=== PATIENT | female | born 1980 | race African-American/Black ===

== ENCOUNTER → 2017-07-12 | Outpatient (CLI) | payer OTHER ==
[~2017-07-12] VITALS: Ht 152.4 cm; Wt 99.8 kg
[~2017-07-12] MED LIST: AMOX1TAB5 PO; CONEX TABLET1 EACH PO; TESSALON PERLE100 MG PO
== END | disposition home or self-care (01) ==
LOC: PPHC 12:41
DX: J06.9 Acute upper respiratory infection, unspecified (principal)

== ENCOUNTER → 2023-09-01 | Emergency (ER) | payer OTHER ==
[~2023-09-01] VITALS: Ht 162.6 cm; Wt 95.3 kg
== END | disposition left against medical advice (07) ==
LOC: ER 01:11
DX: Z53.21 Procedure and treatment not carried out due to patient leaving prior to being seen by health care provider (principal)